=== PATIENT | male | born 1960 | race American Indian/Alaskan Native ===

== ENCOUNTER 2016-11-29 23:58 | Emergency (ER) | payer MEDICAID ==
[2016-11-30 01:13] VITALS: BP 158/92
[2016-11-30 01:30] LABS: Basophils % (Auto) 0.7 % (0.0-1.8); Eosinophils % (Auto) 2.9 % (0.0-4.3); Hematocrit 46.2 % (35.5-45.6); Hemoglobin 14.9 gm/dl (11.8-15.2); Mean Corpuscular HGB Conc 32 % (32-34); Mean Corpuscular Hemoglobin 28 pg (28-32); Mean Corpuscular Volume 88 fl (84-94); Platelet Count 181 K/mm3 (140-440); Red Blood Count 5.25 M/mm3 (3.65-5.03); Red Cell Distribution Width 13.8 % (13.2-15.2); White Blood Count 7.6 K/mm3 (4.5-11.0)
[2016-11-30 01:46] LABS: INR 0.92 (0.87-1.13)
[2016-11-30 01:47] LABS: Partial Thromboplastin Time 34.4 Sec. (24.2-36.6)
--- NOTE | 2016-11-30 01:47 | XRay Report ---
FINAL REPORT PROCEDURE: XR CHEST ROUTINE 2V TECHNIQUE: PA and lateral chest radiographs were obtained. CPT 33605 HISTORY: productive cough COMPARISON: No prior studies are available for comparison. FINDINGS: Heart: Normal. Mediastinum/Vessels: Normal. Lungs/Pleural space: Normal. Bony thorax: No acute osseous abnormality. Other: IMPRESSION: Normal examination.
[2016-11-30 01:49] LABS: Bilirubin,Urine NEG (Negative); Blood,Urine SM (Negative); Ketones,Urine NEG (Negative); Leukocyte Esterase,Urine NEG (Negative); Mucus,Urine FEW /HPF; Nitrite,Urine NEG (Negative); Protein,Urine <15 mg/dL mg/dL (Negative); Urobilinogen,Urine < 2.0 mg/dL (<2.0)
[2016-11-30 02:16] LABS: Creatine Kinase MB 4.3 ng/mL (0.0-4.0)
[2016-11-30 02:19] LABS: Albumin 4.4 g/dL (3.9-5); Albumin/Globulin Ratio 1.3 %; Alkaline Phosphatase 49 units/L (35-129); BUN/Creatinine Ratio 17.77; Blood Urea Nitrogen 16 mg/dL (9-20); Calcium 10.1 mg/dL (8.4-10.2); Carbon Dioxide 23 mmol/L (22-30); Chloride 99.9 mmol/L (98-107); Glucose 99 mg/dL (75-100); Lipase 87 units/L (13-60); Sodium 138 mmol/L (137-145); Total Protein 7.8 g/dL (6.3-8.2)
[2016-11-30 02:28] LABS: Alanine Aminotransferase 20 units/L (7-56); Anion Gap 20 mmol/L; Potassium 4.7 mmol/L (3.6-5.0)
--- NOTE | 2016-11-30 08:19 | Emergency Department Report ---
HPI - General Chief Complaint: Upper Respiratory Infection Time Seen by Provider: 11/30/16 07:22 - HPI HPI: This is a 56-year-old Afro-[place] male who presents the emergency department with multiple complaints and the patient says "I have a cold that won't go away. " He has been having a 2 week history of a mixed dry and productive cough, sore throat, infected teeth. He denies any fever, nausea, vomiting or diaphoresis. Sometimes when the patient coughs he gets some soreness to the chest wall and complains of a "bubbling" in his chest. He tried some TheraFlu once for his symptoms without any relief. He has a history of GERD and hypertension. He has a primary care doctor, Dr. Lennon, but has not seen them regarding his symptoms. No recent travel or sick contacts at home. He denies any tobacco abuse. ED Past Medical Hx - Past Medical History Previous Medical History?: Yes Hx Hypertension: Yes Hx GERD: Yes Additional medical history: Abd Hernia - Surgical History Past Surgical History?: No - Social History Smoking Status: Never Smoker Substance Use Type: None - Medications Home Medications: Home Medications Medication Instructions Recorded Confirmed Last Taken Type Benzonatate [Tessalon Perles] 100 mg PO Q8HR PRN #20 capsule 11/30/16 Unknown Rx Omeprazole Magnesium [PriLOSEC Otc] 20 mg PO QDAY #20 tablet. 11/30/16 Unknown Rx Sulfamethoxazole/Trimethoprim 1 each PO BID #14 tablet 11/30/16 Unknown Rx [Bactrim DS TAB] ED Review of Systems ROS: Stated complaint: SORE THROAT/TOOTH PAIN Other details as noted in HPI Comment: All other systems reviewed and negative Constitutional: denies: chills, fever Eyes: denies: eye pain, eye discharge, vision change ENT: dental pain. denies: ear pain, throat pain Respiratory: cough, shortness of breath Cardiovascular: denies: palpitations, edema Gastrointestinal: denies: abdominal pain, nausea, diarrhea Genitourinary: denies: urgency, dysuria Musculoskeletal: denies: back pain, joint swelling, arthralgia Skin: denies: rash, lesions Neurological: denies: headache, weakness, paresthesias Physical Exam - Physical Exam Vital Signs: Vital Signs 11/30/16 00:15 Temperature 98.1 F Pulse Rate 71 Respiratory 20 Rate Blood Pressure 158/92 [Right] O2 Sat by Pulse 100 Oximetry Physical Exam: GENERAL: The patient is well-developed well-nourished. HEENT: Normocephalic. Atraumatic. Extraocular motions are intact. Patient has moist mucous membranes. Pupils equal reactive to light bilaterally. The patient appears to have chronically decayed lateral incisors. Posterior oropharynx is unremarkable. NECK: Supple. Trachea is midline. CHEST/LUNGS: Clear to auscultation. No cough heard during examination. No tachypnea or accessory muscle use. There is no respiratory distress noted. HEART/CARDIOVASCULAR: Regular. There is no tachycardia. There is no gallop rub or murmur. ABDOMEN: Abdomen is soft, nontender. Patient has normal bowel sounds. There is no abdominal distention. SKIN: Skin is warm and dry. NEURO: The patient is awake, alert, and oriented. The patient is cooperative. The patient has no focal neurologic deficits. The patient has normal speech and gait. Cranial nerves II through XII grossly intact. MUSCULOSKELETAL: There is no tenderness or deformity. There is no limitation range of motion. There is no evidence of acute injury. ED Course Vital Signs 11/30/16 00:15 Temperature 98.1 F Pulse Rate 71 Respiratory 20 Rate Blood Pressure 158/92 [Right] O2 Sat by Pulse 100 Oximetry ED Medical Decision Making - Lab Data Result diagrams: 11/30/16 01:04 11/30/16 01:04 - EKG Data -: EKG Interpreted by Me EKG shows normal: sinus rhythm, axis, intervals, QRS complexes (LVH), ST-T waves Rate: normal - EKG Data When compared to previous EKG there are: previous EKG unavailable Interpretation: normal EKG - Radiology Data Radiology results: image reviewed interpreted by me: Chest x-ray did not show any acute process. Heart is normal shape and size. No effusions. No pneumothorax. No signs of pneumonia seen. - Medical Decision Making 56-year-old male presents with multiple complaints that all appear to be chronic including a mixed dry and productive of cough, to pain from some dental caries and chronically decayed lateral incisors, sore throat. Patient's labs are unremarkable including negative troponins 3 and no leukocytosis. EKG is normal without ST elevation ME, ischemia or dysrhythmia. Chest x-ray does not show any pneumonia, pleural effusions, pneumothorax or any acute process. While it would be a prolonged viral syndrome, the patient most likely has an upper respiratory infection. However with the pain to the DKA teeth as well, the patient will be placed on antibiotics that should cover all of his complaints. Vital signs stable throughout his ED course including being afebrile. He was given referrals for primary care and encouraged to return to the ER if any worsening of symptoms or any acute distress. - Differential Diagnosis dental abscess, dental caries, URI, pneumonia, bronchitis Critical Care Time: No Critical care attestation.: If time is entered above; I have spent that time in minutes in the direct care of this critically ill patient, excluding procedure time. ED Disposition Clinical Impression: Viral syndrome Upper respiratory infection Qualifiers: URI type: unspecified URI Qualified Code(s): J06.9 - Acute upper respiratory infection, unspecified GERD (gastroesophageal reflux disease) Qualifiers: Esophagitis presence: esophagitis presence not specified Qualified Code(s): K21.9 - Gastro-esophageal reflux disease without esophagitis Pharyngitis Qualifiers: Pharyngitis/tonsillitis etiology: unspecified etiology Qualified Code(s): J02.9 - Acute pharyngitis, unspecified Disposition: DISCHARGED TO HOME OR SELFCARE Is pt being admited?: No Condition: Stable Instructions: Pharyngitis (ED), Upper Respiratory Infection (ED), Viral Syndrome (ED) Additional Instructions: Please follow-up with your primary care doctor in the next few days. It is also recommended that you follow-up with a dentist regarding your concern for infected teeth. Return to the emergency department with any worsening of your symptoms or any acute distress. You can take Tylenol every 4 hours and ibuprofen every 6 hours, using weight-based dosing, as needed for discomfort or fever. Prescriptions: Benzonatate [Tessalon Perles] 100 mg PO Q8HR PRN #20 capsule PRN Reason: Cough Omeprazole Magnesium [PriLOSEC Otc] 20 mg PO QDAY #20 tablet. Sulfamethoxazole/Trimethoprim [Bactrim DS TAB] 1 each PO BID #14 tablet Referrals: PRIMARY CARE, [Primary Care Provider] - [facility] Time of Disposition: 08:20
== END 2016-11-30 09:01 | disposition home or self-care (01) ==
LOC: ED 23:58
DX: J06.9 Acute upper respiratory infection, unspecified (principal); K21.9 Gastro-esophageal reflux disease without esophagitis; J02.9 Acute pharyngitis, unspecified; B34.9 Viral infection, unspecified
CPT/HCPCS: 36415; 71020; 80053; 81001; 82550; 82553; 83690; 83735; 84484; 85025; 85610; 85730; 93005; 93010; 99285

== ENCOUNTER 2017-03-20 21:23 | Emergency (ER) | payer SELFPAY ==
[2017-03-20 22:15] LABS: Basophils % (Auto) 0.4 % (0.0-1.8); Eosinophils % (Auto) 2.6 % (0.0-4.3); Hematocrit 43.7 % (35.5-45.6); Hemoglobin 14.4 gm/dl (11.8-15.2); Mean Corpuscular HGB Conc 33 % (32-34); Mean Corpuscular Hemoglobin 29 pg (28-32); Mean Corpuscular Volume 90 fl (84-94); Platelet Count 183 K/mm3 (140-440); Red Blood Count 4.88 M/mm3 (3.65-5.03); Red Cell Distribution Width 13.6 % (13.2-15.2); White Blood Count 9.5 K/mm3 (4.5-11.0)
[2017-03-20 22:26] LABS: INR 0.93 (0.87-1.13)
[2017-03-20 22:27] LABS: Partial Thromboplastin Time 33.1 Sec. (24.2-36.6)
[2017-03-20 22:34] LABS: Amylase 163 units/L (27-131); Anion Gap 19 mmol/L; BUN/Creatinine Ratio 17.14; Blood Urea Nitrogen 12 mg/dL (9-20); Calcium 9.8 mg/dL (8.4-10.2); Carbon Dioxide 27 mmol/L (22-30); Chloride 99.3 mmol/L (98-107); Glucose 87 mg/dL (75-100); Lipase 85 units/L (13-60); Sodium 141 mmol/L (137-145)
[2017-03-21] MEDS ORDERED: BABY ASPIRIN PO ONE (07:06)
--- NOTE | 2017-03-21 07:30 | XRay Report ---
ROUTINE CHEST, TWO VIEWS: HISTORY: Hypertension. The trachea, heart, mediastinal contour, lung antony and bony thorax are unremarkable. IMPRESSION: Unremarkable chest x-ray. No significant change since 11/30/16.
[2017-03-21] MEDS ORDERED: NACL 0.9% 1000 ML 1,000 ML IV ONE (08:35)
[2017-03-21] MEDS ORDERED: PEPCID IV ONE (08:35)
--- NOTE | 2017-03-21 11:00 | Cat Scan Report ---
CTA CHEST: History: Chest pain. Technique: Helical CT following IV contrast. Pulmonary embolus protocol. Sagittal and coronal reformatted images. Rotational MIP images. Findings: Contrast bolus is satisfactory. No pulmonary embolus is identified. The thyroid gland, tracheobronchial tree, esophagus, heart, pericardium, aorta, lung antony and bony thorax are unremarkable. Impression: No evidence for pulmonary embolus. Unremarkable CT chest with contrast.
--- NOTE | 2017-03-21 11:03 | Cat Scan Report ---
CT ANGIOGRAM ABDOMEN AND PELVIS HISTORY: Abdominal pain. TECHNIQUE: Helical CT following IV contrast. Sagittal and coronal reformatted images. Rotational MIP images. NASCET criteria was utilized. FINDINGS: Contrast bolus is satisfactory. The abdominal aorta, celiac axis, SMA, [place]OL[place]ANG, single left renal artery, dual right renal arteries and bilateral iliac systems are widely patent with less than 20% stenosis. No significant atherosclerotic disease is identified. No dissection. The liver, biliary system, pancreas, spleen, kidneys and adrenal glands are unremarkable. There are scattered diverticula throughout the length of the colon. No acute inflammatory process is appreciated. No evidence for bowel obstruction. The appendix is normal. The bladder, distal ureters and prostate gland are unremarkable. No evidence for ascites, adenopathy or abscess. The bony structures are intact. Moderate degenerative disc disease at L3-4 is noted. IMPRESSION: Normal CTA of the abdomen and pelvis.
--- NOTE | 2017-03-21 11:29 | Emergency Department Report ---
ED Chest Pain HPI - General Chief Complaint: Chest Pain Stated Complaint: CHEST PAIN Time Seen by Provider: 03/21/17 06:41 Source: patient Mode of arrival: Ambulatory Limitations: No Limitations - History of Present Illness MD Complaint: chest pain -: Gradual, days(s) Onset: after eating Pain Location: substernal Pain Radiation: back Severity: mild Severity scale (0 -10): 2 Quality: aching, other (burning. history of hiatal hernia) Consistency: intermittent Improves With: nothing Worsens With: nothing re: denies: nausea, vomting, diaphoresis, dyspnea, sense of impending doom Other Symptoms: acid taste in mouth. denies: cough, fever, syncope, rash, leg swelling, palpitations, burping - Related Data Previous Rx's Medication Instructions Recorded Last Taken Type Benzonatate [Tessalon Perles] 100 mg PO Q8HR PRN #20 capsule 11/30/16 Unknown Rx Omeprazole Magnesium [PriLOSEC Otc] 20 mg PO QDAY #20 tablet. 11/30/16 Unknown Rx Sulfamethoxazole/Trimethoprim 1 each PO BID #14 tablet 11/30/16 Unknown Rx [Bactrim DS TAB] Ibuprofen [Motrin] 400 mg PO Q8H PRN #20 tablet 03/21/17 Unknown Rx Penicillin Vk [Veetids TAB] 250 mg PO QID #40 tablet 03/21/17 Unknown Rx Allergies Allergy/AdvReac Type Severity Reaction Status Date / Time No Known Allergies Allergy Verified 11/30/16 00:54 Heart Score - HEART Score History: Slightly suspicious EKG: Non-specific Age: 45-65 Risk factors: No known risk factors Troponin: < normal limit HEART Score: 2 ED Review of Systems ROS: Stated complaint: CHEST PAIN Other details as noted in HPI Other: GENERAL: No weight change, fatigue, weakness, fever, chills, or night sweats SKIN: No changes in skin or hair, no itching, no rashes, no jaundice HEAD: No trauma, headache, or visual changes EYES: No blurriness, tearing, itching, acute visual loss, conjunctival discoloration, or scleral icterus EARS: No hearing loss, tinnitus, vertigo, or earache NOSE: No rhinorrhea, stuffiness, sneezing, itching, or epistaxis MOUTH: Toothache. No bleeding gums, hoarseness, sore throat, or swelling CARDIAC: Chest pain. No new murmur, palpitations, dyspnea on exertion, orthopnea, PND, or edema RESPIRATORY: No shortness of breath, wheeze, cough, sputum production, hemoptysis, pneumonia, asthma, bronchitis, or emphysema GI: No change in appetite, nausea, vomiting, dysphagia, change in bowel frequency, diarrhea, constipation, bleeding, hematemesis, melena, hematochezia, or abdominal pain URINARY: No frequency, urgency, polyuria, dysuria, hematuria, or incontinence MUSCULOSKELETAL: No muscle weakness, joint stiffness, decrease in range of motion, redness, swelling NEUROLOGIC: No loss of sensation, numbness, tingling, tremors, weakness, paralysis, seizures HEMATOLOGIC: No anemia, easy bruising, bleeding, petechiae, or purpura ENDOCRINE: No hot or cold intolerance, sweating, polyuria, polydipsia or, polyphagia no thyroid problems PSYCHIATRIC: No change in mood, no anxiety, no depression ED Past Medical Hx - Past Medical History Previous Medical History?: Yes Hx Hypertension: Yes Hx GERD: Yes Additional medical history: Abd Hernia - Surgical History Past Surgical History?: No - Social History Smoking Status: Never Smoker Substance Use Type: None - Medications Home Medications: Home Medications Medication Instructions Recorded Confirmed Last Taken Type Benzonatate [Tessalon Perles] 100 mg PO Q8HR PRN #20 capsule 11/30/16 Unknown Rx Omeprazole Magnesium [PriLOSEC Otc] 20 mg PO QDAY #20 tablet. 11/30/16 Unknown Rx Sulfamethoxazole/Trimethoprim 1 each PO BID #14 tablet 11/30/16 Unknown Rx [Bactrim DS TAB] Ibuprofen [Motrin] 400 mg PO Q8H PRN #20 tablet 03/21/17 Unknown Rx Penicillin Vk [Veetids TAB] 250 mg PO QID #40 tablet 03/21/17 Unknown Rx ED Physical Exam - General Limitations: No Limitations - Other Other exam information: GENERAL: Patient in no acute distress HEAD: Normocephalic, atraumatic EYES: PERRLA, EOM intact, no scleral icterus, visual antony and acuity wnl NOSE: No tenderness, discharge, sinus tenderness MOUTH: Dental caries. No erythema, bleeding, exudate HEART: Regular rate and rhythm, no murmur, S1-S2 are auscultated, pulses are symmetric LUNGS: bilateral breath sounds. No wheezing, rales, rhonchi ABDOMEN: Normal bowel sounds, no tenderness, no rebound, no guarding, no masses , no CVA tenderness MUSCULOSKELETAL: Normal joint range of motion, no redness, no swelling, no tenderness NEUROLOGIC: GCS 15, Alert and Oriented x3, Cranial nerves intact, normal sensation, normal strength, normal gait, no cerebellar deficit PSYCHIATRIC: No homicidal or suicidal ideation, no anxiety, no depression, no hallucinations SKIN: Skin is warm and dry, no wounds, no rashes ED Course Vital Signs 03/20/17 03/21/17 03/21/17 21:31 07:44 10:08 Temperature 98.2 F 98.0 F Pulse Rate 81 96 H 88 Respiratory 18 20 18 Rate Blood Pressure 145/96 Blood Pressure 137/93 124/79 [Right] O2 Sat by Pulse 99 100 100 Oximetry 03/21/17 12:15 Temperature 98.6 F Pulse Rate 75 Respiratory 20 Rate Blood Pressure Blood Pressure 138/87 [Right] O2 Sat by Pulse 100 Oximetry SANJAY score - Sanjay Score Age > 65: (0) No Aspirin use within the Past 7 Days: (0) No 3 or more CAD Risk Factors: (0) No 2 or more Angina events in past 24 hrs: (1) Yes Known CAD with more than 50% Stenosis: (0) No Elevated Cardiac Markers: (0) No ST Deviation Greater than 0.5mm: (0) No SANJAY Score: 1 ED Medical Decision Making - Lab Data Result diagrams: 03/20/17 21:57 03/20/17 21:57 - EKG Data Interpretation: no acute changes - Radiology Data Radiology results: report reviewed - Medical Decision Making Patient comfortable. Updated with results. Offered admission for cardiac evaluation / stress test. Patient refuses admission and request discharge with close outpatient follow up with his PCP. Patient reports recent negative stress test within the last year. Family member at bedside agrees with patient' s decision. Patient agrees with plan and will return if symptoms worsen. Critical care attestation.: If time is entered above; I have spent that time in minutes in the direct care of this critically ill patient, excluding procedure time. ED Disposition Clinical Impression: Chest pain in adult, Dental caries Disposition: TO HOME OR SELFCARE Is pt being admited?: No Condition: Stable Instructions: Chest Pain (ED), Dental Caries (ED) Prescriptions: Ibuprofen [Motrin] 400 mg PO Q8H PRN #20 tablet PRN Reason: Pain Penicillin Vk [Veetids TAB] 250 mg PO QID #40 tablet Referrals: PRIMARY CAREMD [Primary Care Provider] - 2-3 Days CALEB GUZMAN MD [Staff Physician] - 2-3 Days [facility] [Outside] - 2-3 Days [facility] [Provider Group] - 2-3 Days Time of Disposition: 11:27
[2017-03-21 12:16] VITALS: BP 138/87
== END 2017-03-21 12:16 | disposition home or self-care (01) ==
LOC: ED 21:23
DX: R07.89 Other chest pain (principal); K02.9 Dental caries, unspecified; I10 Essential (primary) hypertension; K21.9 Gastro-esophageal reflux disease without esophagitis
CPT/HCPCS: 36415; 71020; 71275; 74174; 80048; 82150; 83690; 84484; 85025; 85610; 85730; 93005; 93010; 96361; 96374; 99285; J7030; Q9967